=== PATIENT | female | born 1950 | race Caucasian/White ===

== ENCOUNTER 2017-01-23 15:44 | Emergency (ER) | payer BC ==
[2017-01-23 15:56] VITALS: BP 140/74; PULSE 79; TEMP 98.6; BMI 37.3
[2017-01-23] MEDS ORDERED: ACETAMINOPHEN 325 MG TABLET (FP) PO ONE (16:11)
[2017-01-23] MEDS ORDERED: ACETAMINOPHEN 325 MG TABLET (FP) ONE (16:20)
--- NOTE | 2017-01-23 16:29 | PDOC ---
History of Present Illness - General History Source: Patient Exam Limitations: No Limitations - History of Present Illness Initial Comments: 01/23/17 16:34 The patient is a 66 year old female patient, with a significant past medical history of morbid obesity, who presents to the emergency room complaining of right knee pain for approx. 22 hours s/p fall. The patient reports she was putting stuff in her car when she twisted and fell from standing. The patient reports she began feeling a moderate pain in the right knee and states the pain felt like it was radiating up towards the right thigh. The patient states the right knee pain is worse with movement. The patient states she began to ice the right knee every hour s/p fall and states she took two Aleve today approx. four hours ago. She denies recent knee surgery. She denies loss of consciousness , head injury, or dizziness before falling. She denies nausea, vomiting, diarrhea or constipation. She denies chest pain or shortness of breath. She denies numbness or loss of sensation. Allergies: Penicillins PCP: Dr. Jovanny Addison <Reinier Castañeda - Last Filed: 01/23/17 17:01> - General History Source: Patient Exam Limitations: No Limitations - History of Present Illness Initial Comments: 01/23/17 16:13 <Katerina Dwyer - Last Filed: 01/23/17 17:16> - General Chief Complaint: Injury Stated Complaint: RT KNEE PAIN Time Seen by Provider: 01/23/17 15:57 Past History <Reinier Castañeda - Last Filed: 01/23/17 17:01> - Past Medical History Other medical history: GLAUCOMA - Suicide/Smoking/Psychosocial Hx Smoking History: Never smoked Have you smoked in the past 12 months: No Hx Alcohol Use: (occasional) <Katerina Dwyer - Last Filed: 01/23/17 17:16> - Past Medical History Allergies/Adverse Reactions: Allergies Allergy/AdvReac Type Severity Reaction Status Date / Time Penicillins Allergy Verified 01/23/17 15:45 Home Medications: Ambulatory Orders Ibuprofen [Motrin -] 600 mg PO TID PRN #90 tablet 01/23/17 Tafluprost/Pf [Zioptan 0.0015% Eye Drops] 1 each OU DAILY 01/23/17 Review of Systems - Review of Systems Comments:: 01/23/17 16:35 GENERAL/CONSTITUTIONAL: No fever or chills. No weakness. HEAD, EYES, EARS, NOSE AND THROAT: No change in vision. No ear pain or discharge. No sore throat. CARDIOVASCULAR: No chest pain or shortness of breath. RESPIRATORY: No cough, wheezing, or hemoptysis. GASTROINTESTINAL: No nausea, vomiting, diarrhea or constipation. GENITOURINARY: No dysuria, frequency, or change in urination. MUSCULOSKELETAL: +Right knee pain. No neck or back pain. SKIN: No rash NEUROLOGIC: No headache, vertigo, loss of consciousness, or change in strength/ sensation. ENDOCRINE: No increased thirst. No abnormal weight change. HEMATOLOGIC/LYMPHATIC: No anemia, easy bleeding, or history of blood clots. ALLERGIC/IMMUNOLOGIC: No hives or skin allergy. <Reinier Castañeda - Last Filed: 01/23/17 17:01> *Physical Exam - Vital Signs Last Vital Signs Temp Pulse Resp BP Pulse Ox 98.6 F 79 18 140/74 96 01/23/17 15:45 01/23/17 15:45 01/23/17 15:45 01/23/17 15:45 01/23/17 15:45 - Physical Exam Comments: 01/23/17 16:36 GENERAL: Awake, alert, and fully oriented, in no acute distress HEAD: No signs of trauma EYES: PERRLA, EOMI, sclera anicteric, conjunctiva clear ENT: Auricles normal inspection, hearing grossly normal, nares patent, oropharynx clear without exudates. Moist mucosa NECK: Normal ROM, supple, no lymphadenopathy, JVD, or masses LUNGS: Breath sounds equal, clear to auscultation bilaterally. No wheezes, and no crackles HEART: Regular rate and rhythm, normal S1 and S2, no murmurs, rubs or gallops ABDOMEN: +Obese. Soft, nontender, normoactive bowel sounds. No guarding, no rebound. No masses EXTREMITIES: +External right knee tender to palpation lateral to patella. + Right knee ROM limited to 90 degrees flexion due to pain. +Small ecchymosis posterior calf and lateral calf. No laxity. Negative anterior/ posterior drawer sign. Negative nahed's. Ankle/ hip NTFROM NEUROLOGICAL: Cranial nerves II through XII grossly intact. Normal speech, normal gait SKIN: Warm, Dry, normal turgor, no rashes or lesions noted. <Reinier Castañeda - Last Filed: 01/23/17 17:01> - Vital Signs Last Vital Signs Temp Pulse Resp BP Pulse Ox 98.6 F 79 18 140/74 96 01/23/17 15:45 01/23/17 15:45 01/23/17 15:45 01/23/17 15:45 01/23/17 15:45 <Katerina Dwyer - Last Filed: 01/23/17 17:16> ED Treatment Course - RADIOLOGY Radiology Studies Ordered: Category Date Time Status KNEE 3 POS-RIGHT [RAD] Stat Radiology 01/23/17 16:11 Ordered <Katerina Dwyer - Last Filed: 01/23/17 17:16> Medical Decision Making - Medical Decision Making 01/23/17 16:13 66 yo F with no pmhx here with c/o right knee injury happened yeterday evening aroud 6:30 was twisting to reach somethin in car, suddenly fell. c/o right knee pain. mild bruising. pain worse with flexion. ext. no hip or ankle pain. pain radiates up her thigh. lateral pain. no prior knee surgeries. on exam awake alert right knee with latera ttp. lateral to patell. no laxity. neg ant/ post drawer. neg lachmans. no effusion. small eccymosis posterio calf and lateral calf. rom limited to 90 deg flexion due to pain. hip/ ankle Nt FROM. plan xray, knee immobilizerl. ortho followup. crutches as needed,. 01/23/17 17:14 xray with degenerative changs only. dc with knee immobilizer and crutches. pain control ortho followup <Katreina Dwyer - Last Filed: 01/23/17 17:16> *DC/Admit/Observation/Transfer - Attestations Scribe Attestion: 01/23/17 16:36 Documentation prepared by Reinier Castañeda, acting as medical appointment clerk for Katerina Dwyer MD. <Reinier Castañeda - Last Filed: 01/23/17 17:01> - Discharge Dispostion Admit: No <Katerina Dwyer - Last Filed: 01/23/17 17:16> Diagnosis at time of Disposition: Knee injury - Discharge Dispostion Disposition: HOME Condition at time of disposition: Stable - Prescriptions Prescriptions: Ibuprofen [Motrin -] 600 mg PO TID PRN #90 tablet PRN Reason: Pain - Referrals Referrals: Jovanny Addison MD [Primary Care Provider] - Markus Baugh MD [Staff Physician] - - Patient Instructions Printed Discharge Instructions: Knee Sprain, How to Use a Knee Immobilizer Additional Instructions: you can wear a knee immobilizer or brace for comfort. use crutches. follow up with orthopedics with in one week. call to schedule. see referral information for Dr Baugh. you can take ibuprofen 400 mg every 8 hours as needed for pain. ice and elevate twice daily to aid with swelling and reduce pain.
== END 2017-01-23 17:30 | disposition home or self-care (01) ==
LOC: FER 15:44
PROC: 2W3QX1Z Immobilization of Right Lower Leg using Splint (ICD-10-PCS; principal; 2017-01-23)
DX: S89.91XA Unspecified injury of right lower leg, initial encounter (principal); X58.XXXA Exposure to other specified factors, initial encounter; Y93.9 Activity, unspecified; Y92.9 Unspecified place or not applicable
CPT/HCPCS: 73562-TC-RT; 99282-25